=== PATIENT | female | born 1950 | race Caucasian/White ===

== ENCOUNTER 2025-02-26 12:11 | Outpatient (OUT) | payer MEDICARE, SELFPAY ==
--- OUTSIDE RECORDS SUMMARY | 2025-02-18 14:30 | XMS_ITS | Encounter Summary ---
Author Organization [facility] Address [address] [place] [address] Care Team Providers Care Coater Carbon Paper Name Role Phone Nicholas Muñiz MD Primary Care Provider [phone] Nicholas Muñiz MD Unavailable [phone] Reason for Visit * Reason Comments Medicare Annual Wellness Visit Subsequen t Encounter Details Date Type Department Care Team ([facility] Contact Info) Description 02/18/2025 2:30 PM EDT Office Visit [facility] [address] [facility] [address] [place] [address] Olivia Baldwin PA [address] [facility] [address] [place] [address] Medicare annual wellness visit, subsequent (Primary Dx); ACP (advance care planning); Fibromyalgia; Iron deficiency anemia due to chronic blood loss; Other chronic pain; Ankylosing spondylitis, unspecified site of spine (HCC); Abnormal mammogram; Anxiety with depression; Bilateral hearing loss, unspecified hearing loss type; Bilateral lower extremity edema; Chronic sinusitis, unspecified location; Diverticulosis; Estrogen deficiency; Hiatal hernia; Primary insomnia; Internal derangement of right knee; Mild persistent asthma without complication (HCC); Chronic pain of left knee; Primary osteoarthritis of both knees; Pseudophakia of both eyes; Seasonal allergies; Major depressive disorder, single episode, mild ; Chronic obstructive pulmonary disease, unspecified COPD type (HCC); Morbid (severe) obesity due to excess calories ([facility]); Encounter for screening mammogram for malignant neoplasm of breast; Symptomatic varicose veins of both lower extremities; Arthritis of both hands; Esophageal varices without bleeding (HCC); Polyp of vocal cord and larynx Social History Tobacco Use Types Packs/Day Years Used Date Smoking Tobacco: Never Smokeless Tobacco: Never Alcohol Use Standard Drinks/Week Comments Not Currently 0 (1 standard drink = 0.6 oz pur e alcohol) PHQ-2 Answer Date Recorded Patient Health Questionnaire-2 Score 0 02/18/2025 Comments Unknown Sex and Gender Information Value Date Recorded Sex Assigned at Not on file Legal Sex Female 6:40 PM EDT Gender Identity Not on file Sexual Orientation Not on file documented as of this encounter Last Filed Vital Signs Vital Sign Reading Time Taken Comments Blood Pressure 124/78 02/18/2025 2:29 PM EDT Pulse 84 02/18/2025 2:29 PM EDT Temperature - - Respiratory Rate - - Oxygen Saturation 97% 02/18/2025 2:29 PM EDT Inhaled Oxygen Concentration - - Weight 85.3 kg (188 lb) 02/18/2025 2:29 PM EDT Height 154.9 cm (5' 1 ) 02/18/2025 2:29 PM EDT Body Mass Index 35.52 02/18/2025 2:29 PM EDT documented in this encounter Functional Status * Over the past 2 weeks, how often have you been bothered by any of the following problems? Question Answer Date of Assessment Author Little interest or pleasure in doing things Not at all 02/18/2025 2:00 PM EDT Agustina [place] MA Feeling down, depressed, or hopeless Not at all 02/18/2025 2:00 PM EDT Agustina [place] MA Patient Health Questionnaire -2 Score 0 02/18/2025 2:00 PM EDT Agustina [place] MA documented as of this encounter Progress Notes * ABDIEL Mora - 02/18/2025 2:30 PM EDT Images from the original note were not included. Subjective Patient ID: Shena Holder is a 74 y.o. female who presents for Medicare Annual Wellness Visit Subsequent. HPI Medicare Wellness Over the past 2 weeks, how often have you been bothered by any of the following problems? Little interest or pleasure in doing things: Not at all Feeling down, depressed, or hopeless: Not at all Patient Health Questionnaire-2 Score: 0 [place] Fall Risk History of Falling, Immediate or Within 3 Months: No Health Risk Assessment Form Do you need help eating, bathing, using the toilet, dressing, or getting around your home?: No Can you prepare your own meals?: Yes Can you do your own housework without help?: Yes Can you shop for groceries or clothes without help?: Yes Do you exercise for about 20 minutes 3 or more days a week?: Yes How confident are you that you can control and manage most of your health problems?: Very confident Can you mange your money, credit cards and accounts, pay bills and taxes?: Yes Vision Screening: Yes, no gross abnormalities Hearing Screening: Yes, no gross abnormalities Cognitive Screening Self Assessment: No overt cognitive deficiency is apparent by direct observation Three Word Registration: Leader, Season, Table Clock Drawing: Normal Clock - 2 Three Word Recall: All 3 words correct - 3 Total Score (0-5 Points): 5 Pain Assessment Pain Score: 0 - No pain Advance Care Planning Do you have a living will?: Yes Do you have a medical power of criminal defense attorney?: No Current Outpatient Medications on File Prior to Visit Medication Sig Dispense Refill albuterol HFA 90 mcg/act inhaler 2 puffs every 6 (six) hours if needed for wheezing or shortness ofbreath. amitriptyline (Elavil) 50 MG tablet Take 2 tablets (100 mg) by mouth at bedtime 180 tablet 0 ARIPiprazole (Abilify) 2 MG tablet Take 1 tablet (2 mg) by mouth 1 (one) time each day at the same time 100 tablet 3 budesonide-formoterol (Symbicort) 160-4.5 MCG/ACT inhaler Inhale 2 puffs in the morning and 2 puffsbefore bedtime. cyclobenzaprine (Flexeril) 10 MG tablet Take 1 tablet (10 mg) by mouth at bedtime 100 tablet 1 ferrous sulfate 325 (65 Fe) MG tablet Take 1 tablet (325 mg) by mouth 1 (one) time each day at the same time. 100 tablet 1 FLUoxetine (PROzac) 40 MG capsule Take 1 capsule (40 mg) by mouth Daily 100 capsule 3 furosemide (Lasix) 20 MG tablet TAKE 2 TABLET IN THE MORNING AND 1 TABLETS IN THE AFTERNOON 270 tablet 1 gabapentin (Neurontin) 600 MG tablet Take 1 capsule by mouth every morning and 2 capsules at night.90 tablet 2 loratadine (Claritin) 10 MG tablet Take 10 mg by mouth 1 (one) time each day at the same time. meloxicam (Mobic) 7.5 MG tablet TAKE 1 TABLET BY MOUTH EVERY 12 HOURS 200 tablet 1 traMADol (Ultram) 50 MG tablet Take 1 tablet (50 mg) by mouth every 6 (six) hours if needed for moderate pain or severe pain 28 tablet 0 Current Facility-Administered Medications on File Prior to Visit Medication Dose Route Frequency Provider Last Rate Last Admin triamcinolone acetonide (Kenalog-40) injection 40 mg 40 mg Intramuscular Once ABDIEL Mora I have reviewed and reconciled the history and medication list with the patient today. No Known Allergies Social History Tobacco Use Smoking status: Never Smokeless tobacco: Never Substance Use Topics Alcohol use: Not Currently Family History Problem Relation Name Age of Onset Hypertension Mother Heart disease Mother Cancer Mother Cancer Father Past Medical History: Diagnosis Date Allergies Anemia Arthritis Asthma (HCC) COPD (chronic obstructive pulmonary disease) (HCC) Depression Diverticulosis Gastritis Hiatal hernia History of blood transfusion 08/2018 Insomnia Past Surgical History: Procedure Laterality Date BREAST BIOPSY 05/08/2019 BREAST SURGERY 2006 biopsy ESOPHAGOGASTRODUODENOSCOPY 2007 with biopsy ESOPHAGOGASTRODUODENOSCOPY 11/06/2018 with biopsy EYE SURGERY Bilateral cataract lens implants KNEE ARTHROSCOPY W/ DEBRIDEMENT 1989 SINUS SURGERY 06/2003 TONSILLECTOMY 1957 Visit Vitals BP 124/78 Pulse 84 Ht 5' 1 Wt 188 lb SpO2 97% BMI 35.52 kg/m?? Smoking Status Never BSA 1.92 m?? Review of Systems Constitutional: Negative for chills, fatigue and fever. HENT: Negative for congestion, ear pain, rhinorrhea and sore throat. Eyes: Negative for pain, discharge and visual disturbance. Respiratory: Positive for cough. Negative for shortness of breath and wheezing. Cardiovascular: Negative for chest pain, palpitations and leg swelling. Gastrointestinal: Negative for abdominal pain, constipation, diarrhea, nausea and vomiting. Genitourinary: Negative for difficulty urinating, dysuria and frequency. Musculoskeletal: Negative for arthralgias and back pain. Skin: Negative for rash. Neurological: Negative for dizziness and numbness. Psychiatric/Behavioral: Negative for sleep disturbance. The patient is not nervous/anxious. Objective Physical Exam Constitutional: General: She is not in acute distress. Appearance: She is well-developed. She is obese. HENT: Head: Normocephalic and atraumatic. Right Ear: Tympanic membrane and ear canal normal. Left Ear: Tympanic membrane and ear canal normal. Nose: Right Turbinates: Swollen and pale. Left Turbinates: Swollen and pale. Mouth/Throat: Mouth: Mucous membranes are dry. Pharynx: No posterior oropharyngeal erythema. Eyes: General: No scleral icterus. Extraocular Movements: Extraocular movements intact. Conjunctiva/sclera: Conjunctivae normal. Pupils: Pupils are equal, round, and reactive to light. Neck: Vascular: No carotid bruit. Cardiovascular: Rate and Rhythm: Normal rate and regular rhythm. Heart sounds: Normal heart sounds. No murmur heard. Pulmonary: Effort: Pulmonary effort is normal. No respiratory distress. Breath sounds: No wheezing, rhonchi or rales. Comments: Mildly harsh to auscultation Abdominal: General: Bowel sounds are normal. There is no distension. Palpations: Abdomen is soft. Tenderness: There is no abdominal tenderness. There is no guarding. Musculoskeletal: General: Deformity (Arthritic changes noted of bilateral hands) present. No swelling. Normal range of motion. Cervical back: Normal range of motion and neck supple. No tenderness. Comments: Varicose veins bilateral lower legs Skin: General: Skin is warm and dry. Capillary Refill: Capillary refill takes less than 2 seconds. Findings: No rash. Neurological: General: No focal deficit present. Mental Status: She is alert and oriented to person, place, and time. Cranial Nerves: No cranial nerve deficit. Sensory: No sensory deficit. Motor: No weakness. Gait: Gait abnormal (Straight cane for ambulation). Deep Tendon Reflexes: Reflexes normal. Psychiatric: Mood and Affect: Mood normal. Behavior: Behavior normal. Thought Content: Thought content normal. Judgment: Judgment normal. Assessment & Plan 1. Medicare annual wellness visit, subsequent (Primary) Reviewed all relevant preventative screenings with the patient in detail. Medicare Wellness form completed and will be scanned into patient's chart. All needed testing was ordered. Will continue withyearly Medicare Wellness exams. - CBC and differential - Comprehensive metabolic panel - Iron + transferrin + TIBC - Lipid panel 2. ACP (advance care planning) Patient willing to discuss ACP. Pt has Living Will in place. 3. Fibromyalgia This is a chronic medical condition that is stable since last assessment. No changes in treatment are suggested at this time. Continue Flexeril as needed. - cyclobenzaprine (Flexeril) 10 MG tablet; Take 1 tablet (10 mg) by mouth at bedtime Dispense: 100 tablet; Refill: 3 4. Iron deficiency anemia due to chronic blood loss This is a chronic medical condition that is stable since last assessment. No changes in treatment are suggested at this time. Continue Supplement as prescribed. - ferrous sulfate 325 (65 Fe) MG tablet; Take 1 tablet (325 mg) by mouth 1 (one) time each day at the same time Dispense: 100 tablet; Refill: 3 - CBC and differential - Iron + transferrin + TIBC 5. Other chronic pain This is a chronic medical condition that is stable since last assessment. No changes in treatment are suggested at this time. Continue Gabapentin as prescribed. - gabapentin (Neurontin) 600 MG tablet; Take 1 capsule by mouth every morning and 2 capsules at night. Dispense: 90 tablet; Refill: 5 6. Ankylosing spondylitis, unspecified site of spine (HCC) Medication choice and dosage is appropriate for patient's current medical conditions. Patient will continue to be required to be seen in our office at least every three months for monitoring if she wants refill. At each follow up visit I will reassess the patient's need for the medication. Patient is to have this medication prescribed only through this office. Failure to follow the rules and regulations will result in tapering and discontinuation of medications if applicable. Patient verbalizedunderstanding. OARRS Report was reviewed for this patient. - meloxicam (Mobic) 7.5 MG tablet; Take 1 tablet (7.5 mg) by mouth every 12 (twelve) hours Dispense: 200 tablet; Refill: 3 - traMADol (Ultram) 50 MG tablet; Take 1 tablet (50 mg) by mouth every 6 (six) hours if needed for moderate pain or severe pain Dispense: 28 tablet; Refill: 0 7. Abnormal mammogram Mammogram from 2021 was stable in appearance. Provided patient with an order for an updated Mammogram. If results are negative/normal, will plan to continue with routine yearly screenings. 8. Anxiety with depression This is a chronic medical condition that is stable since last assessment. No changes in treatment are suggested at this time. Continue Fluoxetine as prescribed. 9. Bilateral hearing loss, unspecified hearing loss type This is a chronic medical condition that is stable since last assessment. Will continue to monitor. 10. Bilateral lower extremity edema Occasional lower leg pain. Recommend compression stockings daily to support circulation. Contact office with any concerns. - CBC and differential - Comprehensive metabolic panel 11. Chronic sinusitis, unspecified location This is a chronic medical condition that is stable since last assessment. No changes in treatment are suggested at this time. Continue Loratadine as prescribed. 12. Diverticulosis This is a chronic medical condition that is stable since last assessment. Will continue to monitor. 13. Estrogen deficiency Provided pt with order for updated DEXA scan. Will continue to monitor every two years. - DEXA bone density; Future 14. Hiatal hernia This is a chronic medical condition that is stable since last assessment. Will continue to monitor. 15. Primary insomnia This is a chronic medical condition that is stable since last assessment. No changes in treatment are suggested at this time. Continue Amitriptyline as prescribed. 16. Internal derangement of right knee This is a chronic medical condition that is stable since last assessment. No changes in treatment are suggested at this time. Continue Meloxicam as prescribed. 17. Mild persistent asthma without complication (HCC) Encouraged pt to restart the Symbicort as prescribed. Refill provided on it and the Albuterol. Cough should improve once treatment is resumed. Provided pt with Depo-Medrol 60 mg IM today, she tolerated this well. 18. Chronic pain of left knee This is a chronic medical condition that is stable since last assessment. No changes in treatment are suggested at this time. Continue Meloxicam as prescribed. 19. Primary osteoarthritis of both knees This is a chronic medical condition that is stable since last assessment. No changes in treatment are suggested at this time. Continue Meloxicam as prescribed. 20. Pseudophakia of both eyes This is a chronic medical condition that is stable since last assessment. Follow up with Ophthalmology. 21. Seasonal allergies This is a chronic medical condition that is stable since last assessment. No changes in treatment are suggested at this time. Continue Loratadine as prescribed. 22. Major depressive disorder, single episode, mild This is a chronic medical condition that is stable since last assessment. No changes in treatment are suggested at this time. Continue Fluoxetine as prescribed. 23. Chronic obstructive pulmonary disease, unspecified COPD type (HCC) Encouraged pt to restart the Symbicort as prescribed. Refill provided on it and the Albuterol. Cough should improve once treatment is resumed. Provided pt with Depo-Medrol 60 mg IM today, she tolerated this well. - albuterol HFA 90 mcg/act inhaler; Inhale 2 puffs every 6 (six) hours if needed for wheezing or shortness of breath Dispense: 18 g; Refill: 3 - budesonide-formoterol (Symbicort) 160-4.5 MCG/ACT inhaler; Inhale 2 puffs in the morning and 2 puffs before bedtime. Dispense: 1 each; Refill: 3 - methylPREDNISolone acetate (DEPO-Medrol) injection 60 mg 24. Morbid (severe) obesity due to excess calories ([facility]) Encouraged portion control, decrease simple sugars and carbohydrates, gradually increase activity level. Aim for gradual steady weight loss. - Lipid panel 25. Encounter for screening mammogram for malignant neoplasm of breast Provided patient with an order for an updated Mammogram. If results are negative/normal, will plan to continue with routine yearly screenings. - Bilateral screening mammogram with tomosynthesis; Future 26. Symptomatic varicose veins of both lower extremities Occasional lower leg pain. Recommend compression stockings daily to support circulation. Contact office with any concerns. 27. Arthritis of both hands Continue Meloxicam as prescribed, take with food. Can apply Voltaren Gel to affected joints as needed. 28. Esophageal varices without bleeding This is a chronic medical condition that is stable since last assessment. No concerns at this time. 29. Polyp of vocal cord and larynx This is a chronic medical condition that is stable since last assessment. No concerns at this time. Follow up in about 1 year (around 02/18/2026) for Medicare Wellness Visit. Olivia YUEN, PARyanC documented in this encounter Plan of Treatment Scheduled Orders Name Type Priority Associated Diagnoses Orde r Schedule Bilateral screening mammogram with tomosynthesis Imaging Routine Encounter for screening mammogram for malignant neoplasm of breast Expected: 02/18/2025 (Approximate), Expires: 04/21/2026 DEXA bone density Imaging Routine Estrogen deficiency Expected: 02/18/2025 (Approximate), Expires: 02/18/2026 CBC and differential Lab Routine Medicare annual wellness visit, subsequent Iron deficiency anemia due to chronic blood loss Bilateral lower extremity edema Ordered: 02/18/2025 Comprehensive metabolic panel Lab Routine Medicare annual wellness visit, subsequent Bilateral lower extremity edema Ordered: 02/18/2025 Iron + transferrin + TIBC Lab Routine Medicare annual wellness visit, subsequent Iron deficiency anemia due to chronic blood loss Ordered: 02/18/2025 Lipid panel Lab Routine Medicare annual wellness visit, subsequent Morbid (severe) obesity due to excess calories ([facility]-HCC) Ordered: 02/18/2025 documented as of this encounter Visit Diagnoses Diagnosis Medicare annual wellness visit, subsequent- Primary ACP (advance care planning) Other specified counseling Fibromyalgia Unspecified myalgia and myositis Iron deficiency anemia due to chronic blood loss Iron deficiency anemia secondary to blood loss (chronic) Other chronic pain Ankylosing spondylitis, unspecified site of spine (HCC) Abnormal mammogram Abnormal mammogram, unspecified Anxiety with depression Bilateral hearing loss, unspecified hearing loss type Bilateral lower extremity edema Chronic sinusitis, unspecified location Diverticulosis Diverticulosis of colon (without mention of hemorrhage) Estrogen deficiency Other ovarian failure Hiatal hernia Diaphragmatic hernia without mention of obstruction or gangrene Primary insomnia Persistent disorder of initiating or maintaining sleep Internal derangement of right knee Mild persistent asthma without complication (HCC) Chronic pain of left knee Primary osteoarthritis of both knees Pseudophakia of both eyes Lens replaced by other means Seasonal allergies Allergic rhinitis, cause unspecified Major depressive disorder, single episode, mild Major depressive disorder, single episode, mild Chronic obstructive pulmonary disease, unspecified COPD type (HCC) Morbid (severe) obesity due to excess calories (CMS-HCC) Encounter for screening mammogram for malignant neoplasm of breast Symptomatic varicose veins of both lower extremities Arthritis of both hands Esophageal varices without bleeding (HCC) Esophageal varices without mention of bleeding Polyp of vocal cord and larynx Polyp of vocal cord or larynx documented in this encounter Administered Medications Inactive Administered Medications - up to 3 most recent administrations Medication Order MAR Action Action Date Dose Rate Site methylPREDNISolone acetate (DEPO-Medrol) injection 60 mg 60 mg, Intramuscular, Once, On Sun02/18/25 at 1500, For 1 doseIndications:Chronic obstructive pulmonary disease, unspecified COPD type (HCC) Given 02/18/2025 2:54 PM EDT 60 mg Left Ventrogluteal documented in this encounter Additional Health Concerns Assessment Noted Time PHQ-9 Depression Total Score: 6 02/19/20 24 9:00 AM EDT documented as of this encounter Care Teams Coater Carbon Paper Relationship Specialty Start Date End Date Nicholas Muñiz MD [address] [facility] [address] [place] [address] PCP - General Internal Medicine 02/14/23 Nicholas Muñiz MD [address] [facility] [address] [place] [address] PCP - [facility] 08/06/23 03/05/71 documented as of this encounter
--- OUTSIDE RECORDS SUMMARY | 2025-02-26 12:17 | XMS_ITS | Encounter Summary ---
Author Organization [facility] Address [address] [facility] [place] [address] Care Team Providers Care Structural Engineer Name Role Phone Nicholas Muñiz MD Primary Care Provider [phone] Nicholas Muñiz MD Unavailable [phone] Encounter Details Date Type Department Care Team (Late Contact Info) Description 02/20/2025 Abstract [facility] [address] [facility] [address] [place] [id number] Nicholas Muñiz MD [address] [facility] [address] [place], [place] [id number] Social History Tobacco Use Types Packs/Day Years [...] on file documented as of this encounter Plan of Treatment Not on file documented as of this encounter Visit Diagnoses Not on filedocumented in this encounter Additional Health Concerns Assessment Noted Time PHQ-9 Depression Total Score: 6 02/19/20 24 9:00 AM EDT documented as of this encounter Care Teams Structural Engineer Relationship Specialty Start Date End Date Nicholas Muñiz MD [address] [facility] [address] [place] [address] PCP - General Internal Medicine 02/14/23 Nicholas Muñiz MD [address] [facility] [address] [place] [address] [facility] 08/06/23 03/05/71 documented as of this encounter
--- OUTSIDE RECORDS SUMMARY | 2025-02-26 12:17 | XMS_ITS | Encounter Summary ---
Author Organization [facility] Address [address] [place] [address] Care Team Providers Care Probation And Parole Officer Name Role Phone Nicholas Muñiz MD Primary Care Provider [phone] Nicholas Muñiz MD Unavailable [phone] Encounter Details Date Type Department Care Team (Late st Contact Info) Description 02/18/2025 Bamboo flowsheet [facility] [address] [facility] [address] [place] [address] Olivia Baldwin PA [address] [facility] [address] [place] [address] Social History Tobacco Use Types Packs/Day Years [...] on file documented as of this encounter Functional Status * Over the [...] [place] documented as of this encounter Plan of Treatment Not on file documented as of this encounter Visit Diagnoses Not on filedocumented in this encounter Additional Health Concerns Assessment Noted Time PHQ-9 Depression Total Score: 6 02/19/20 24 9:00 AM EDT documented as of this encounter Care Teams Probation And Parole Officer Relationship Specialty Start Date End Date Nicholas Muñiz MD [address] [facility] [address] [place] [address] PCP - General Internal Medicine 02/14/23 Nicholas Muñiz MD [address] [facility] [address] [place] [address] PCP - [facility] 08/06/23 03/05/71 documented as of this encounter
--- OUTSIDE RECORDS SUMMARY | 2025-02-26 12:17 | XMS_ITS | Encounter Summary ---
Author Organization [facility] Address [address] [place] [address] Care Team Providers Care Bus Boy Name Role Phone Nicholas Muñiz MD Primary Care Provider [phone] Nicholas Muñiz MD Unavailable [phone] Encounter Details Date Type Department Care Team (Late st Contact Info) Description 02/20/2024 Abstract [facility] 110 [place] [id number] Nicholas Muñiz MD [address] [facility] 110 [place], [place] [id number] Social History Tobacco Use Types Packs/Day Years Used Date Smoking Tobacco: Never Smokeless Tobacco: Never Alcohol Use Standard Drinks/Week Comments Not Currently 0 (1 standard drink = 0.6 oz pur e alcohol) PHQ-2 Answer Date Recorded Patient Health Questionnaire-2 Score 1 02/19/2024 Comments Unknown Sex and Gender Information Value [...] documented as of this encounter Care Teams Bus Boy Relationship Specialty Start Date End Date Nicholas Muñiz MD [address] [facility] 110 [place] [address] PCP - General Internal Medicine 02/14/23 Nicholas Muñiz MD 112 [facility] 110 [place] [address] [facility] 08/06/23 03/05/71 documented as of this encounter
--- OUTSIDE RECORDS SUMMARY | 2025-02-26 12:17 | XMS_ITS | Clinical Summary ---
Author Organization [facility] Address [address] [place] [address] Care Team Providers Care Running Specialist Name Role Phone Unavailable Primary Care Provider Unavailabl e Social History Tobacco Use Types Packs/Day Years Used Date Smoking Tobacco: Never Assessed Comments Unknown Sex and Gender Information Value Date Recorded Sex Assigned at Not on file Legal Sex Female 12:12 AM EDT Gender Identity Not on file Sexual Orientation Not on file Plan of Treatment Not on file
--- OUTSIDE RECORDS SUMMARY | 2025-02-26 12:17 | XMS_ITS | Encounter Summary ---
Author Organization [facility] Address [address] [place] [address] Care Team Providers Care Rn Clinical Research Name Role Phone Nicholas Muñiz MD Primary Care Provider [phone] Nicholas Muñiz MD Unavailable [phone] Encounter Details Date Type Department Care Team (Latest Contact Info) Description 02/18/2025 Travel Social History Tobacco Use Types Packs/Day Years [...] documented as of this encounter Care Teams Rn Clinical Research Relationship Specialty Start Date End Date Nicholas Muñiz MD [address] [facility] 110 [place] [address] PCP - General Internal Medicine 02/14/23 Nicholas Muñiz MD [address] [facility] [address] [place] [address] PCP - [facility] 08/06/23 03/05/71 documented as of this encounter
--- OUTSIDE RECORDS SUMMARY | 2025-02-26 12:17 | XMS_ITS | Clinical Summary ---
Author Organization [employer] Address [id number] [address] [place] [address] Care Team Providers Care Java Groovy Developer Name Role Phone Nicholas Muñiz MD Primary Care Provider [phone] Allergies No known active allergies Medications sodium,potchasityiu m,mag sulfates (SUPREP BOWEL PREP KIT) 17.5-3.13-1.6 gram recon soln 177 ml,actual weight, 2 times daily, Oral 1 kit 10/28/2018 Active amitriptyline (ELAVIL) 50 mg tablet Take 50 mg by mouth nightly. 3 10/05/2018 Active PROAIR HFA 90 mcg/actuation inhaler INHALE 2 PUFFS NEEDED EVERY 6 HOURS 11 08/19/2018 Active cholecalciferol , vitamin D3, 2,000 units capsule Take by mouth daily. 1 08/01/2018 Active cyclobenzaprine (FLEXERIL) 10 mg tablet Take 10 mg by mouth nightly. 3 10/05/2018 Active diclofenac (VOLTAREN) 75 mg EC tablet Take 75 mg by mouth 2 (two) times a day. 3 10/05/2018 Active diclofenac sodium (VOLTAREN) 1 % gel APPLY 4 GRAMS TO LEFT KNEE 4 TIMES A DAY 1 10/05/2018 Active ferrous sulfate 325 (65 FE) mg tablet TAKE ONE TABLET BY MOUTH THREE TIMES DAILY WITH FOOD 0 08/22/2018 Active FLUoxetine (PROzac) 40 MG capsule Take by mouth daily. 3 10/05/2018 Active folic acid (FOLVITE) 1 mg tablet Take 1,000 mcg by mouth daily. 0 08/22/2018 Active gabapentin (NEURONTIN) 400 mg capsule TAKE 1 CAPSULE BY MOUTH EVERY DAY AT BEDTIME 3 08/12/2018 Active Active Problems No known active problems Social History Tobacco Use Types Packs/Day Years Used Date Smoking Tobacco: Never Smokeless Tobacco: Never Alcohol Use Standard Drinks/Week Comments Yes 0 (1 standard drink = 0.6 oz pur e alcohol) SOMETIMES Childcare Answer Date Recorded Childcare Unknown 01/09/2019 Employment Answer Date Recorded Employment Unknown 01/09/2019 Purpose - Life Answer Date Recorded Purpose and direction in life Unknown Comments Unknown Sex and Gender Information Value Date Recorded Sex Assigned at Not on file Legal Sex Female 11:51 AM EDT Gender Identity Not on file Sexual Orientation Not on file Last Filed Vital Signs Vital Sign Reading Time Taken Comments Blood Pressure 130/82 11/18/2018 3:11 PM EDT Pulse - - Temperature - - Respiratory Rate - - Oxygen Saturation - - Inhaled Oxygen Concentration - - Weight 88.5 kg (195 lb) 11/18/2018 3:11 PM EDT Height 154.9 cm (5' 1 ) 11/18/2018 3:11 PM EDT Body Mass Index 36.84 11/18/2018 3:11 PM EDT Plan of Treatment Health Maintenance Due Date Last Done Comments Depression Screening 1962 Tobacco Screening 1963 Adult BMI Screening 1969 DTaP,Tdap and Td Vaccines (1 - Tdap) 1970 Zoster (Shingles) Vaccine (1 of 2) 2001 Fall Risk Screening 02/25/2016 Influenza Vaccine 04/06/2025 Medical Devices Not on file Insurance MEDICARE [id number] PLAN Care Teams Java Groovy Developer Relationship Specialty Start Date End Date Nicholas Muñiz MD [address] [id number] PCP - General Internal Medicine 10/22/18
--- OUTSIDE RECORDS SUMMARY | 2025-02-26 12:17 | XMS_ITS | Clinical Summary ---
Author Organization [facility] Address [address] [place] [address] Care Team Providers Care Heel Varnisher Name Role Phone Nicholas Muñiz MD Primary Care Provider [phone] Nicholas Muñiz MD Unavailable [phone] Allergies No known active allergies Medications loratadine (Claritin) 10 MG tablet Take 10 mg by mouth 1 (one) time each day at the same time. Active FLUoxetine (PROzac) 40 MG capsuleIndicati ons:Anxiety with depression Take 1 capsule (40 mg) by mouth Daily 100 capsule 3 02/19/20 24 Active furosemide (Lasix) 20 MG tabletIndicatio ns:Edema, unspecified type TAKE 2 TABLET IN THE MORNING AND 1 TABLETS IN THE AFTERNOON 270 tablet 1 07/18/20 24 Active amitriptyline (Elavil) 50 MG tabletIndicatio ns:Fibromyalgia Take 2 tablets (100 mg) by mouth at bedtime 180 tablet 01/31/20 25 025 Active albuterol HFA 90 mcg/act inhalerIndicati ons:Chronic obstructive pulmonary disease, unspecified COPD type (HCC) Inhale 2 puffs every 6 (six) hours if needed for wheezing or shortness of breath 18 g 3 02/19/20 25 Active budesonide-form oterol (Symbicort) 160-4.5 MCG/ACT inhalerIndicati ons:Chronic obstructive pulmonary disease, unspecified COPD type (HCC) Inhale 2 puffs in the morning and 2 puffs before bedtime. 1 each 3 02/19/20 25 Active cyclobenzaprine (Flexeril) 10 MG tabletIndicatio ns:Fibromyalgia Take 1 tablet (10 mg) by mouth at bedtime 100 tablet 3 02/19/20 25 Active ferrous sulfate 325 (65 Fe) MG tabletIndicatio ns:Iron deficiency anemia due to chronic blood loss Take 1 tablet (325 mg) by mouth 1 (one) time each day at the same time 100 tablet 3 02/19/20 25 Active gabapentin (Neurontin) 600 MG tabletIndicatio ns:Other chronic pain Take 1 capsule by mouth every morning and 2 capsules at night. 90 tablet 5 02/19/20 25 Active meloxicam (Mobic) 7.5 MG tabletIndicatio ns:Ankylosing spondylitis, unspecified site of spine (HCC) Take 1 tablet (7.5 mg) by mouth every 12 (twelve) hours 200 tablet 3 02/19/20 25 Active traMADol (Ultram) 50 MG tabletIndicatio ns:Ankylosing spondylitis, unspecified site of spine (HCC) Take 1 tablet (50 mg) by mouth every 6 (six) hours if needed for moderate pain or severe pain 28 tablet 02/19/20 25 Active albuterol HFA 90 mcg/act inhaler 2 puffs every 6 (six) hours if needed for wheezing or shortness of breath. 025 Discontinued(Re order) budesonide-form oterol (Symbicort) 160-4.5 MCG/ACT inhaler Inhale 2 puffs in the morning and 2 puffs before bedtime. 025 Discontinued(Re order) ferrous sulfate 325 (65 Fe) MG tabletIndicatio ns:Iron deficiency anemia due to chronic blood loss Take 1 tablet (325 mg) by mouth 1 (one) time each day at the same time. 100 tablet 1 06/13/20 23 025 Discontinued(Re order) traMADol (Ultram) 50 MG tabletIndicatio ns:Ankylosing spondylitis, unspecified site of spine (HCC) Take 1 tablet (50 mg) by mouth every 6 (six) hours if needed for moderate pain or severe pain 28 tablet 02/19/20 24 025 Discontinued(Re order) gabapentin (Neurontin) 600 MG tabletIndicatio ns:Other chronic pain Take 1 capsule by mouth every morning and 2 capsules at night. 90 tablet 2 02/19/20 24 025 Discontinued(Re order) cyclobenzaprine (Flexeril) 10 MG tabletIndicatio ns:Fibromyalgia Take 1 tablet (10 mg) by mouth at bedtime 100 tablet 1 02/19/20 24 025 Discontinued(Re order) ARIPiprazole (Abilify) 2 MG tabletIndicatio ns:Anxiety with depression Take 1 tablet (2 mg) by mouth 1 (one) time each day at the same time 100 tablet 3 02/19/20 24 025 Discontinued(Th erapy completed) amitriptyline (Elavil) 50 MG tabletIndicatio ns:Fibromyalgia TAKE 2 TABLETS (100 MG) BY MOUTH AT BEDTIME 200 tablet 1 04/08/20 24 025 Discontinued meloxicam (Mobic) 7.5 MG tabletIndicatio ns:Ankylosing spondylitis, unspecified site of spine (HCC) TAKE 1 TABLET BY MOUTH EVERY 12 HOURS 200 tablet 1 10/21/19 25 025 Discontinued(Re order) Hospital, Clinic, or Other Facility Administered Medication Ordered Dose Route Frequency Start Date End Date Status triamcinolone acetonide (Kenalog-40) injection 40 mgIndications:Seasona l allergies 40 mg IM Once 02/19/2024 02/18/2025 Discontinued methylPREDNISolone acetate (DEPO-Medrol) injection 60 mgIndications:Chronic obstructive pulmonary disease, unspecified COPD type (HCC) 60 mg IM Once 02/18/2025 02/18/2025 Ended Active Problems Problem Noted Date Diagnosed Date Arthritis of both hands 02/18/2025 Symptomatic varicose veins of both lower extremi ties 02/18/2025 Major depressive disorder, single episode, mild 02/19/2024 Chronic obstructive pulmonary disease, unspecifi ed 02/19/2024 Morbid (severe) obesity due to excess calories 0 02/19/2024 Seasonal allergies 06/13/2023 Other chronic pain 02/14/2023 Abnormal mammogram 02/13/2023 Ankylosing spondylitis 02/13/2023 Anxiety with depression 02/13/2023 Bilateral hearing loss 02/13/2023 Bilateral lower extremity edema 02/13/2023 Chronic sinusitis 02/13/2023 Diverticulosis 02/13/2023 Estrogen deficiency 02/13/2023 Hiatal hernia 02/13/2023 Insomnia 02/13/2023 Internal derangement of right knee 02/13/2023 Iron deficiency anemia due to chronic blood loss 02/13/2023 Mild persistent asthma without complication 02/03 Fibromyalgia 02/13/2023 Pain in left knee 02/13/2023 Polyp of vocal cord and larynx 02/13/2023 Osteoarthritis of knee 02/13/2023 Pseudophakia of both eyes 02/13/2023 Resolved Problems Problem Noted Date Diagnosed Date Resolved Date Obesity (BMI 30-39.9) 02/13/20232024 Encounters Date Type Department Care Team Description 02/20/2025 Abstract [facility] [address] [facility] [address] [place] [address] Nicholas Muñiz MD 02/18/2025 2:30 PM EDT Office Visit [facility] [address] [facility] [address] [place] [address] Olivia Baldwin PA Medicare annual wellness visit, subsequent (Primary Dx); [...] Morbid (severe) obesity due to excess calories ([facility]-H[facility]); Encounter for screening mammogram for malignant neoplasm of breast; Symptomatic varicose veins of both lower extremities; Arthritis of both hands; Esophageal varices without bleeding (HCC); Polyp of vocal cord and larynx 02/18/2025 Bamboo flowsheet [facility] [address] [facility] [facility] [address] [place] [address] Olivia Baldwin PA 02/18/2025 Travel 01/30/2025 Refill [facility] [address] [facility] [facility] 110 [place] [address] Nicholas Muñiz MD Fibromyalgia from Last 3 Months Immunizations Immunization Administration Dates Next Due Hep B, adult 02/07/2002,10/09/2001,09/11/2001 Influenza, High Dose Seasona l, Preservative Free 05/07/2020,09/08/2019,06/14/2018,05/25 Influenza, High-dose Seasona l, Quadrivalent, Preservative Free 06/08/2022,05/07/2020,04/05/2020,09/08 Influenza, Seasonal, Quadriv alent, Adjuvanted 05/03/2023 Influenza, seasonal, intrade rmal, preservative free 06/14/2018 Pneumococcal Conjugate PCV 13 04/05/2018 Pneumococcal Polysaccharide PPSV23 04/05/2018,,05/25/2016 RSV, recombinant, protein oleary bunit RSVpreF, adjuvant reconstitu, 120mcg/0.5mL, PF (Arexvy) 06/21/2023 Tdap 06/23/2020 Tetanus toxoid, adsorbed 01/14/2007 Family History Medical History Relation Name Comments Cancer Father Cancer Mother Heart disease Mother Hypertension Mother Relation Name Status Comments Father Mother Social History Tobacco Use Types Packs/Day Years Used Date Smoking Tobacco: Never Smokeless Tobacco: Never Tobacco Cessation:Counseling Given: Not Answered Alcohol Use Standard Drinks/Week Comments Not Currently [...] PM EDT Temperature - - Respiratory Rate 02/19/2024 9:58 AM EDT Oxygen Saturation 97% 02/18/2025 2:29 PM EDT Inhaled Oxygen Concentration - - Weight 85.3 kg (188 lb) 02/18/2025 2:29 PM EDT Height 154.9 cm (5' 1 ) 02/18/2025 2:29 PM EDT Body Mass Index 35.52 02/18/2025 2:29 PM EDT Plan of Treatment Health Maintenance Due Date Last Done Comments CT Colonography 1950 FIT-DNA 1950 FIT 1950 FOBT 1950 Sigmoidoscopy 1950 Mammogram 08/12/2022 08/12/2021, 04/07, 04/28/2019, Additional history exists Influenza Vaccine (#1) 2025 , 06/08/2022, 05/07/2020, Additional history exists Medicare Annual Wellness (AWV) 02/18/2026 0 02/18/2025, 02/19/2024, 07/21/2021 Colonoscopy 11/06/2028 11/06/2018 Colorectal Cancer Screening 11/06/2028 Pneumococcal Vaccine: 65+ Years Completed 04/05/2018, 04/05/2018, 08/06/2017, Additional history exists Procedures Procedure Name Priority Date/Time Associated Diagnosis Comments BI MAMMOGRAM SCREENING TOMOSYNTHESIS BILATERAL Routine 08/12/2021 COLONOSCOPY Routine 11/06/2018 12:00 PM EDT from Last 3 Months or Most Recently Relevant to Health Maintenance Results * Bilateral screening mammogram with tomosynthesis (08/12/2021) Anatomical Region Laterality Modality Breast Bilateral Mammography Narrative 08/12/2021 12:00 AM EST PERFORMED AT [facility] LOCATION:[place] [address] Patient: GLORY Noland Exam Date: 08/12/2021 : 1950 Gender:F Ordering : DR NICHOLAS MUÑIZ M.D. Admission #: [id number] Family : Order #: [id number] CLICK HERE TO VIEW EXAM RADIOLOGY REPORT PROCEDURE: MAMMOGRAM SCREENING 3D BILATERAL CAD COMPARISON: MG MAMM SCREEN LORETO W CAD 04/17/2019. MG MAMM LT DIAG FU 04/28/2019. MAMMO POST BIOPSY LEFT 05/08/2019. INDICATIONS: Screening mammography Calculator Name NCI Breast Cancer Risk Assessment Tool 5 Year Breast Cancer Risk 5.10% Lifetime Breast Cancer Risk 14.20% Personal Breast Cancer No Personal Ovarian Cancer No Treatments None Family Cancers Mother with breast cancer at age 78; Mother with thyroid cancer at age 36; Father with colon cancer at age 36; Father with lung cancer at age 64; Grandmother-paternal with colon cancer at age 72. LOCATION: [facility] BREAST COMPOSITION: Heterogeneously dense which may obscure small masses. FINDINGS: DIAGNOSTIC CATEGORY 2--BENIGN FINDING. NO CHANGE FROM COMPARISON. Scattered benign-appearing nodules are present. Scattered benign-appearing calcifications are present. Scattered benign-appearing lymph nodes are present. RIGHT BREAST: No significant suspicious finding. LEFT BREAST: No significant suspicious finding. Stable micro clip markers anterior breast. RECOMMENDATIONS: ROUTINE MAMMOGRAM AND CLINICAL EVALUATION IN 12 MONTHS. PLEASE NOTE: A NORMAL MAMMOGRAM DOES NOT EXCLUDE THE POSSIBILITY OF BREAST CANCER. A CLINICALLY SUSPICIOUS PALPABLE LUMP SHOULD BE BIOPSIED. Dictated by: Andre Cardona MD on 08/12/2021 at 10:26 Approved by: Andre Cardona MD on 08/12/2021 at 10:52 Procedure Note CONVERSION, GENERIC - 02/09/2023 PERFORMED AT [facility] LOCATION:[place] [address] Patient: GLORY Noland Exam Date: 08/12/2021 : 1950 Gender:F Ordering : DR NICHOLAS MUÑIZ M.D. Admission #: [id number] Family : Order #: [id number] CLICK HERE TO VIEW EXAM RADIOLOGY REPORT PROCEDURE: MAMMOGRAM SCREENING 3D BILATERAL CAD COMPARISON: MG MAMM SCREEN LORETO W CAD 04/17/2019. MG MAMM LT DIAG FU 04/28/2019. MAMMO POST BIOPSY LEFT 05/08/2019. INDICATIONS: Screening mammography Calculator Name NCI Breast Cancer Risk Assessment Tool 5 Year Breast Cancer Risk 5.10% Lifetime Breast Cancer Risk 14.20% Personal Breast Cancer No Personal Ovarian Cancer No Treatments None Family Cancers Mother with breast cancer at age 78; Mother withthyroid cancer at age 36; Father with colon cancer at age 36; Father with lungcancer at age 64; Grandmother-paternal with colon cancer at age 72. LOCATION: [facility] BREAST COMPOSITION: Heterogeneously dense which may obscure small masses. FINDINGS: DIAGNOSTIC CATEGORY 2--BENIGN FINDING. NO CHANGE FROM COMPARISON. Scattered benign-appearing nodules are present. Scatteredbenign-appearing calcifications are present. Scattered benign-appearing lymph nodes are present. RIGHT BREAST: No significant suspicious finding. LEFT BREAST: No significant suspicious finding. Stable micro clipmarkers anterior breast. RECOMMENDATIONS: ROUTINE MAMMOGRAM AND CLINICAL EVALUATION IN 12 MONTHS. PLEASE NOTE: A NORMAL MAMMOGRAM DOES NOT EXCLUDE THE POSSIBILITY OFBREAST CANCER. A CLINICALLY SUSPICIOUS PALPABLE LUMP SHOULD BE BIOPSIED. Dictated by: Andre Cardona MD on 08/12/2021 at 10:26 Approved by: Andre Cardona MD on 08/12/2021 at 10:52 Nicholas Muñiz MD IMG BI PROCEDURES Final Result * Colonoscopy (11/06/2018 12:00 PM EDT) Anatomical Region Laterality Modality Endoscopy 11/06/2018 12:0 0 PM EDT Narrative 11/06/2018 12:00 PM EDT PERFORMED AT [facility] LOCATION:[id number] Diverticulosis Procedure Note CONVERSION, GENERIC - 12/20/2022 PERFORMED AT [facility] LOCATION:[id number] Diverticulosis Olivia MEADOWS ENDOSCOPY PROCEDURE ORDERABLES Final Result from Last 3 Months or Most Recently Relevant to Health Maintenance Insurance [employer] [place] [address] Care Teams Heel Varnisher Relationship Specialty Start Date End Date Nicholas Muñiz MD [address] [place] [address] PCP - General Internal Medicine 02/14/23 Nicholas Muñiz MD [address] [place] [address] [id number] [facility] 08/06/23 03/05/71
--- NOTE | 2025-02-26 12:38 | MM_ITS ---
Patient Name: FOREST SANCHEZ MR#: [id number] : 1950 Exam Date: 02/26/2025 Ordering Doctor: DR SHERLY MEADOWS RADIOLOGY REPORT PROCEDURE: MM TOMOSYNTHESIS SCREENING BI COMPARISON: MG MAMM SCREEN 3D LORETO CAD, 08/12/2021. MAMMO POST BIOPSY LEFT, 05/08/2019. MG MAMM SCREEN LORETO W CAD, 04/17/2019. INDICATIONS: Screening for malignant neoplasm Calculator Name NCI Breast Cancer Risk Assessment Tool 5 Year Breast Cancer Risk 5.20% Lifetime Breast Cancer Risk 11.60% Personal Breast Cancer No Personal Ovarian Cancer No Treatments None Family Cancers Mother with breast cancer at age 78; Mother with thyroid cancer at age 36; Father with colon cancer at age 36; Father with lung cancer at age 64; Grandmother-paternal with colon cancer at age 72. LOCATION: [facility] BREAST COMPOSITION: There are scattered areas of fibroglandular density. FINDINGS: DIAGNOSTIC CATEGORY 1--NEGATIVE. RIGHT BREAST: No significant suspicious finding. LEFT BREAST: No significant suspicious finding. RECOMMENDATIONS: ROUTINE MAMMOGRAM AND CLINICAL EVALUATION IN 12 MONTHS. PLEASE NOTE: A NORMAL MAMMOGRAM DOES NOT EXCLUDE THE POSSIBILITY OF BREAST CANCER. A CLINICALLY SUSPICIOUS PALPABLE LUMP SHOULD BE BIOPSIED. Dictated by: Brandon Robins DO on 02/26/2025 at 16:32 Approved by: Brandon Robins DO on 02/26/2025 at 16:33
[2025-02-26 12:58] LABS: Alanine Aminotransferase 17 U/L (14-59); Albumin Globulin Ratio 0.9; Albumin Level 3.4 g/dL (3.4-5.0); Alkaline Phosphatase 82 U/L (46-116); Anion Gap 14.7; Aspartate Amino Transferase 16 U/L (15-37); Blood Urea Nitrogen 16.0 mg/dL (7.0-18.0); Calcium 8.7 mg/dL (8.5-10.1); Carbon Dioxide 28.0 mmol/L (21.0-32.0); Chloride 99 mmol/L (98-107); Cholesterol 127 mg/dL (<=200); Estimated GFR (African America >60 (>=60 mL/min/1.73m^2); Estimated GFR (Non-African Ame >60 (>=60 mL/min/1.73m^2); Globulin 3.7 g/dL; Glucose 90 mg/dL (74-106); HDL Cholesterol 83 mg/dL (40-60); Potassium 3.7 mmol/L (3.5-5.1); Sodium 138 mmol/L (136-145); Total Protein 7.1 g/dL (6.4-8.2); Triglycerides 21 mg/dL (<=150); VLDL CHOLESTEROL 4.2 mg/dL
[2025-02-26 13:06] LABS: Hematocrit 32.7 % (36.0-48.0); Hemoglobin 9.7 g/dL (12.0-16.0); Immature Granulocytes Abs Auto 0.06 10^3/uL (0.00-0.03); Immature Granulocytes Pct Auto 1.0 % (0.0-0.5); Lymphocytes Absolute Auto 0.7 10^3/uL (1.2-3.8); Mean Corpuscular HGB Conc 29.7 g/dL (29.9-35.2); Mean Corpuscular Hemoglobin 23.6 pg (26.7-34.0); Mean Corpuscular Volume 79.6 fL (81.0-99.0); Platelet Count 211 10^3/uL (150-450); Red Blood Count 4.11 10^6/uL (4.20-5.40); White Blood Count 6.2 10^3/uL (4.0-11.0)
[2025-02-26 14:00] LABS: Iron 38.0 ug/dL (50.0-170.0); Percent Iron Saturation 9.2 %; Total Iron Binding Capacity 412.0 ug/dL (250.0-450.0)
[2025-02-27 08:09] LABS: Transferrin 341 mg/dL (192-364)
== END 2025-02-26 12:12 | disposition home or self-care (01) ==
LOC: MAMMO 12:15 → RAD 12:19
PROVIDERS: PCP Internal Medicine; Visit Provider Physician Assistant
DX: Z00.00 Encounter for general adult medical examination without abnormal findings (principal); E28.39 Other primary ovarian failure; Z12.31 Encounter for screening mammogram for malignant neoplasm of breast; E66.01 Morbid (severe) obesity due to excess calories; Z80.3 Family history of malignant neoplasm of breast; Z80.1 Family history of malignant neoplasm of trachea, bronchus and lung; Z80.0 Family history of malignant neoplasm of digestive organs; Z80.8 Family history of malignant neoplasm of other organs or systems; M85.80 Other specified disorders of bone density and structure, unspecified site
CPT/HCPCS: 36415; 77063; 77067; 77080; 80053; 80061; 83540; 83550; 84466; 85025

== ENCOUNTER 2025-04-01 12:06 | Emergency (ER) | payer MEDICARE, SELFPAY ==
[2025-04-01 12:11] VITALS: BP 178/139; PULSE 89; O2SAT 99
--- OUTSIDE RECORDS SUMMARY | 2025-04-01 12:16 | XMS_ITS | Encounter Summary ---
Author Organization [facility] Address [address] [facility] [place] [address] Care Team Providers Care Backup Engineer Name Role Phone Nicholas Muñiz MD Primary Care Provider [phone] Nicholas Muñiz MD Unavailable [phone] Encounter Details Date Type Department Care Team (Late st Contact Info) Description 02/26/2025 Abstract [facility] [place] [facility] [address] [facility] [address] [place] [address] Nicholas Muñiz MD [address] [facility] 110 [place], [place] [id number] Social History Tobacco Use Types Packs/Day Years [...] documented as of this encounter Care Teams Backup Engineer Relationship Specialty Start Date End Date Nicholas Muñiz MD [address] [facility] 110 [place], [place] [id number] PCP - General Internal Medicine 02/14/23 Nicholas Muñiz MD [address] [place] [id number] PCP - [facility] 08/06/23 03/05/71 documented as of this encounter
--- OUTSIDE RECORDS SUMMARY | 2025-04-01 12:16 | XMS_ITS | Encounter Summary ---
Author Organization [facility] Address [address] [place] [address] Care Team Providers Care Potato Inspector Name Role Phone Unavailable Primary Care Provider Unavailabl e Encounter Details Date Type Department Care Team (Late st Contact Info) Description 11/03/2021 Abstract PATIENT ACUITY SCORE Social History Tobacco Use Types Packs/Day Years Used Date Smoking Tobacco: Never Assessed Comments No Sex and Gender Information Value Date Recorded Sex Assigned at Not on file Legal Sex Female 11:57 AM EST Gender Identity Not on file Sexual Orientation Not on file documented as of this encounter Plan of Treatment Not on file documented as of this encounter Visit Diagnoses Not on filedocumented in this encounter
--- OUTSIDE RECORDS SUMMARY | 2025-04-01 12:16 | XMS_ITS | Encounter Summary ---
Author Organization [facility] Address [address] [place] [address] Care Team Providers Care Rn Transitional Name Role Phone Unavailable Primary Care Provider Unavailabl e Encounter Details Date Type Department Care Team (Late st Contact Info) Description 02/02/2022 Abstract PATIENT ACUITY SCORE Social History Tobacco [...]
--- OUTSIDE RECORDS SUMMARY | 2025-04-01 12:16 | XMS_ITS | Encounter Summary ---
Author Organization [facility] Address [address] [facility] [place] [address] Care Team Providers Care Saturator Tender Name Role Phone Nicholas Muñiz MD Primary Care Provider [phone] Nicholas Muñiz MD Unavailable [phone] Encounter Details Date Type Department Care Team (Late st Contact Info) Description 02/27/2025 Abstract [facility] [place] [facility] [address] [facility] [address] [place] [address] Nicholas Muñiz MD [address] [facility] 110 [place], [place] [id number] Social History Tobacco Use Types Packs/Day Years [...] documented as of this encounter Care Teams Saturator Tender Relationship Specialty Start Date End Date Nicholas Muñiz MD [address] [facility] [address] [place], [place] [id number] PCP - General Internal Medicine 02/14/23 Nicholas Muñiz MD [address] [place] [id number] PCP - [facility] 08/06/23 03/05/71 documented as of this encounter
--- OUTSIDE RECORDS SUMMARY | 2025-04-01 12:16 | XMS_ITS | Clinical Summary ---
Author Organization [facility] Address [address] [place] [address] Care Team Providers Care Cook [employer] Name Role Phone Unavailable Primary Care Provider [...]
--- OUTSIDE RECORDS SUMMARY | 2025-04-01 12:16 | XMS_ITS | Clinical Summary ---
Author Organization [facility] Healthcare Address [address] [place] [address] Care Team Providers Care Shale Planer Operator Helper Name Role Phone Nicholas Muñiz MD Primary Care Provider [phone] Nicholas Muñiz MD Unavailable [phone] Allergies No known active allergies Medications loratadine (Claritin) 10 MG tablet Take 10 mg by mouth 1 (one) time each day at the same time. Active furosemide (Lasix) 20 MG tabletIndicatio ns:Edema, unspecified type TAKE 2 TABLET IN THE MORNING AND 1 TABLETS IN THE AFTERNOON 270 tablet 1 07/18/20 24 Active albuterol HFA 90 mcg/act inhalerIndicati ons:Chronic [...] severe pain 28 tablet 02/19/20 25 Active FLUoxetine (PROzac) 40 MG capsuleIndicati ons:Anxiety with depression TAKE 1 CAPSULE BY MOUTH EVERY DAY 100 capsule 3 03/16/20 25 Active amitriptyline (Elavil) 50 MG tabletIndicatio ns:Fibromyalgia TAKE 2 TABLETS BY MOUTH ONCE EVERYDAY AT BEDTIME 180 tablet 03/27/20 25 Active FLUoxetine (PROzac) 40 MG capsuleIndicati ons:Anxiety with depression Take 1 capsule (40 mg) by mouth Daily 100 capsule 3 02/19/20 24 025 Discontinued amitriptyline (Elavil) 50 MG tabletIndicatio ns:Fibromyalgia Take 2 tablets (100 mg) by mouth at bedtime 180 tablet 01/31/20 25 025 Discontinued Active Problems Problem Noted Date Diagnosed Date [...] Encounters Date Type Department Care Team Description 03/27/2025 Refill [facility] [address] [place] [address] Sherly Baldwin, PA Fibromyalgia 03/15/2025 Refill [facility] [address] [place] [address] Sherly Baldwin, PA Anxiety with depression 02/27/2025 Abstract [facility] [address] [place] [address] Nicholas Muñiz MD 02/27/2025 Abstract [facility] [address] [place] [address] Nicholas Muñiz MD 02/26/2025 Telephone [facility] [address] [place] [address] Sherly Baldwin, ABDIEL 02/26/2025 Clinisync Result Encounter NOM[facility] External Department Unsolicited Sherly Baldwin, ABDIEL 02/26/2025 Telephone [facility] [address] [place] [address] Sherly Baldwin PA 02/26/2025 Abstract [facility] [address] [place] [address] Nicholas Muñiz MD 02/26/2025 Abstract [facility] [address] [place] [address] Nicholas Muñiz MD 02/26/2025 Abstract [facility] [address] [facility] 110 [place] [address] Nicholas Muñiz MD 02/26/2025 Clinisync Result Encounter NOMS External Department Unsolicited Sherly Baldwin PA 02/20/2025 Abstract [facility] [address] [facility] [address] [place] [address] Nicholas Muñiz MD 02/18/2025 2:30 PM EDT Office Visit [facility] 112 [facility] 110 [place] [address] Sherly Baldwin PA Medicare annual wellness visit, subsequent [...] Morbid (severe) obesity due to excess calories ([facility]); Encounter for screening mammogram for malignant neoplasm of breast; Symptomatic varicose veins of both lower extremities; Arthritis of both hands; Esophageal varices without bleeding (HCC); Polyp of vocal cord and larynx 02/18/2025 Bamboo flowsheet [facility] [address] [facility] 110 [place] [address] Sherly Baldwin PA 02/18/2025 Travel 01/30/2025 Refill [facility] [address] [facility] 110 [place] [address] Nicholas Muñiz MD Fibromyalgia from Last 3 [...] 1950 FIT 1950 FOBT 1950 Sigmoidoscopy 1950 Influenza Vaccine (#1) 2025 3, 06/08/2022, 05/07/2020, Additional history exists Medicare Annual Wellness (AWV) 02/18/2026 0 02/18/2025, 02/19/2024, 07/21/2021 Mammogram 02/26/2026 02/26/2025, 01/0 02/2022, 04/28/2019, Additional history exists Colonoscopy 11/06/2028 11/06/2018 Colorectal Cancer Screening 11/06/2028 Pneumococcal Vaccine: 65+ Years Completed 04/05/2018, 04/05/2018, 08/06/2017, Additional history exists Procedures Procedure Name Priority Date/Time Associated Diagnosis Comments MM TOMOSYNTHESIS SCREENING BI 02/26/2025 4:33 PM EDT TRANSFERRIN Routine 02/26/2025 12:31 PM EDT METRO IRON AND TIBC Routine 02/26/2025 1 2:31 PM EDT ALL CBC WITH AUTO DIFF Routine 12:31 PM EDT ALL LIPID PROFILE (FASTING) Routine 02/26/2025 12:31 PM EDT [facility] CMP (CMP) (FOR REMOTE [facility] USE) Routine 02/26/2025 12:31 PM EDT COLONOSCOPY Routine 11/06/2018 12:00 PM EDT from Last 3 Months or Most Recently Relevant to Health Maintenance Results * MM TOMOSYNTHESIS SCREENING BI (02/26/2025 4:33 PM EDT) Anatomical Region Laterality Modality Other 02/26/2025 4:33 PM EDT Narrative 02/26/2025 4:34 PM EDT [facility] [place] [id number] Mammography Report Signed Patient: FOREST HOLDER MR#: [id number] : 1950 Acct:[id number] Age/Sex: 75 / F ADM Date: 02/26/25 Loc: RAD Attending Dr: SHERLY BALDWIN Ordering Physician: SHERLY BALDWIN Results: Date of Service: 02/26/25 Follow Up: Procedure(s): MM tomosynthesis screening BI Accession Number(s): [id number] cc: NICHOLAS MUÑIZ ; SHERLY BALDWIN Patient Name: FOREST HOLDER MR#: [id number] : 1950 Exam Date: 02/26/2025 Ordering Doctor: DR SHERLY BALDWIN PA RADIOLOGY REPORT PROCEDURE: MM TOMOSYNTHESIS SCREENING BI COMPARISON: MG MAMM SCREEN 3D LORETO CAD, 08/12/2021. MAMMO POST BIOPSY LEFT, 05/08/2019. MG MAMM SCREEN LORETO W CAD, 04/17/2019. INDICATIONS: Screening for malignant neoplasm Calculator Name NCI Breast Cancer Risk Assessment Tool 5 Year Breast Cancer Risk 5.20% Lifetime Breast Cancer Risk 11.60% Personal Breast Cancer No Personal Ovarian Cancer No Treatments None Family Cancers Mother with breast cancer at age 78; Mother with thyroid cancer at age 36; Father with colon cancer at age 36; Father with lung cancer at age 64; Grandmother-paternal with colon cancer at age 72. LOCATION: [facility] BREAST COMPOSITION: There are scattered areas of fibroglandular density. FINDINGS: DIAGNOSTIC CATEGORY 1--NEGATIVE. RIGHT BREAST: No significant suspicious finding. LEFT BREAST: No significant suspicious finding. RECOMMENDATIONS: ROUTINE MAMMOGRAM AND CLINICAL EVALUATION IN 12 MONTHS. PLEASE NOTE: A NORMAL MAMMOGRAM DOES NOT EXCLUDE THE POSSIBILITY OF BREAST CANCER. A CLINICALLY SUSPICIOUS PALPABLE LUMP SHOULD BE BIOPSIED. Dictated by: Brandon Robins DO on 02/26/2025 at 16:32 Approved by: Brandon Robins DO on 02/26/2025 at 16:33 Dictated By: Brandon Robins M.D. Signed By: 02/26/25 1634 DD/ 1633 TD/TT: Certified Midwife: Procedure Note Radiology, Radiologist, MD - 02/26/2025 [place] [address] Mammography Report Signed Patient: FOREST HOLDER EMR#: [id number] : 1950cct:[id number] Age/Sex: 75 / FADM Date: 02/26/25 Loc: RAD Attending Dr: SHERLY BALDWIN Ordering Physician: SHERLY BALDWIN MResults: Date of Service: 02/26/25Follow Up: Procedure(s): MM tomosynthesis screening BI Accession Number(s): [id number] cc: NICHOLAS MUÑIZ ; SHERLY BALDWIN Patient Name: FOREST HOLDER MR#: [id number] : 1950 Exam Date: 02/26/2025 Ordering Doctor: DR SHERLY BALDWIN PA RADIOLOGY REPORT PROCEDURE: MM TOMOSYNTHESIS SCREENING BI COMPARISON: MG MAMM SCREEN 3D LORETO CAD, 08/12/2021. MAMMO POST BIOPSYLEFT, 05/08/2019. MG MAMM SCREEN LORETO W CAD, 04/17/2019. INDICATIONS: Screening for malignant neoplasm Calculator Name NCI Breast Cancer Risk Assessment Tool 5 Year Breast Cancer Risk 5.20% Lifetime Breast Cancer Risk 11.60% Personal Breast Cancer No Personal Ovarian Cancer No Treatments None Family Cancers Mother with breast cancer at age 78; Mother withthyroid cancer at age 36; Father with colon cancer at age 36; Father with lungcancer at age 64; Grandmother-paternal with colon cancer at age 72. LOCATION: [facility] BREAST COMPOSITION: There are scattered areas of fibroglandulardensity. FINDINGS: DIAGNOSTIC CATEGORY 1--NEGATIVE. RIGHT BREAST: No significant suspicious finding. LEFT BREAST: No significant suspicious finding. RECOMMENDATIONS: ROUTINE MAMMOGRAM AND CLINICAL EVALUATION IN 12 MONTHS. PLEASE NOTE: A NORMAL MAMMOGRAM DOES NOT EXCLUDE THE POSSIBILITY OFBREAST CANCER. A CLINICALLY SUSPICIOUS PALPABLE LUMP SHOULD BE BIOPSIED. Dictated by: Brandon Robins DO on 02/26/2025 at 16:32 Approved by: Brandon Robins DO on 02/26/2025 at 16:33 Dictated By: Brandon Robins M.D. Signed By:02/26/25 1634 DD/ 32 TD/TT: Certified Midwife: Sherly MEADOWS CLINISYNC IMAGING Final Result * TRANSFERRIN (02/26/2025 12:31 PM EDT) Pathologist [facility] TRANSFERRIN 341 192 - 364 mg/dL TBH Comment: Performed at: [facility] [address] [id number] Life Skills Teacher: Lenny Banks PhD, Phone: [phone] 02/26/2025 12:3 1 PM EDT 02/26/2025 12:32 PM EDT Narrative CLINISYNC - 02/27/2025 8:09 AM EDT Sherly MEADOWS LAB BLOOD ORDERABLES Final Res ult Performing Organization Address City/[facility]/ZIP Co de Phone Number CLINISYNC TBH * (ABNORMAL) METRO IRON AND TIBC (02/26/2025 12:31 PM EDT) Pathologist [facility] TBH IRON 38.0(L) 50.0 - 170.0 ug/dL TBH TBH TOTAL IRON BINDING CAPACITY 412.0 250.0 - 450.0 ug/dL TBH TBH PERCENT IRON SATURATION 9.2 % TBH 02/26/2025 12:3 1 PM EDT 02/26/2025 12:32 PM EDT Narrative CLINISYNC - 02/26/2025 2:02 PM EDT Sherly MEADOWS CLINISYNC Final Result CLINISYNC [facility] * [facility] CMP (CMP) (FOR REMOTE [facility] USE) (02/26/2025 12:31 PM EDT) SODIUM 138 136 - 145 mmol/L TBH POTASSIUM 3.7 3.5 - 5.1 mmol/L TBH CHLORIDE 99 98 - 107 mmol/L TBH CARBON DIOXIDE 28.0 21.0 - 32.0 mmol/L TBH ANION GAP 14.7 TBH GLUCOSE 90 74 - 106 mg/dL TBH BLOOD UREA NITROGEN 16.0 7.0 - 18.0 mg/dL TBH CREATININE 0.65 0.55 - 1.02 mg/dL TBH TBH EGFR-AF [place] >60 >=60 mL/min/1. 73m 2 TBH TBH EGFR-NON AF [place] >60 >=60 mL/min/1. 73m 2 TBH BUN CREATININE RATIO 24.6 TBH CALCIUM 8.7 8.5 - 10.1 mg/dL TBH BILIRUBIN TOTAL 0.5 0.2 - 1.0 mg/dL TBH ASPARTATE AMINO TRANSFERASE 16 15 - 37 U/L TBH ALANINE AMINOTRANSFERASE 17 14 - 59 U/L TBH ALKALINE PHOSPHATASE 82 46 - 116 U/L TBH TOTAL PROTEIN 7.1 6.4 - 8.2 g/dL TBH ALBUMIN LEVEL 3.4 3.4 - 5.0 g/dL TBH GLOBULIN 3.7 g/dL TBH ALBUMIN GLOBULIN RATIO 0.9 TBH 02/26/2025 12:3 1 PM EDT 02/26/2025 12:32 PM EDT Narrative CLINISYNC - 02/26/2025 12:58 PM EDT us Sherly MEADOWS CLINISYNC Final Result [facility] * (ABNORMAL) ALL LIPID PROFILE (FASTING) (02/26/2025 12:31 PM EDT) TRIGLYCERIDES 21 <=150 mg/dL TBH CHOLESTEROL 127 <=200 mg/dL TBH HDL CHOLESTEROL 83(H) 40 - 60 mg/dL TB Comment: > or =60 mg/dl - LOW CARDIOVASCULAR RISK <40 mg/dl - HIGH CARDIOVASCULAR RISK LDL CHOLESTEROL CALCULATED 40.0 mg/dL TB Comment: <100 mg/dl OPTIMAL 100-129 mg/dl NEAR OR ABOVE OPTIMAL 130-159 mg/dl BORDERLINE HIGH 160-189 mg/dl HIGH >190 mg/dl VERY HIGH VLDL CHOLESTEROL 4.2 mg/dL TBH CHOL HDL RATIO 1.5 TB Comment: 3.3 - 4.4 LOW RISK 4.4 - 7.1 AVERAGE RISK 7.1 - 11.0 MODERATE RISK >11.0 HIGH RISK 02/26/2025 12:3 1 PM EDT 02/26/2025 12:32 PM EDT Narrative CLINISYNC - 02/26/2025 12:58 PM EDT us Sherly MEADOWS CLINISYNC Final Result CLINISYNC TB * (ABNORMAL) ALL CBC WITH AUTO DIFF (02/26/2025 12:31 PM EDT) Pathologist [facility] TB WBC 6.2 4.0 - 11.0 10 3/uL TBH TBH RBC 4.11(L) 4.20 - 5.40 10 6/uL TBH TBH HGB 9.7(L) 12.0 - 16.0 g/dL TBH TBH HCT 32.7(L) 36.0 - 48.0 % TBH TBH MCV 79.6(L) 81.0 - 99.0 fL TBH TBH MCH 23.6(L) 26.7 - 34.0 pg TBH TBH MCHC 29.7(L) 29.9 - 35.2 g/dL TBH TBH RDW 15.3(H) 11.0 - 15.0 % TBH TBH PLT 211 150 - 450 10 3/uL TBH TBH MPV 10.2 9.5 - 13.5 fL TBH NEUTROPHILS PERCENT AUTO 71.8 43.0 - 75.0 % TBH LYMPHOCYTES PERCENT AUTO 11.5(L) 20.5 - 60.0 % TBH MONOCYTES PERCENT AUTO 9.7 1.7 - 12.0 % TBH TBH EO % 5.4 0.9 - 7.0 % TBH BASOPHILS PERCENT AUTO 0.6 0.2 - 2.0 % TBH IMMATURE GRANULOCYTES PCT AUTO 1.0(H) 0.0 - 0.5 % TBH NEUTROPHILS ABSOLUTE AUTO 4.4 1.4 - 6.5 10 3/uL TBH LYMPHOCYTES ABSOLUTE AUTO 0.7(L) 1.2 - 3.8 10 3/uL TBH MONOCYTES ABSOLUTE AUTO 0.6 0.3 - 0.8 10 3/uL TBH TBH EO # 0.3 0.0 - 0.7 10 3/uL TBH BASOPHILS ABSOLUTE AUTO 0.0 0.0 - 0.1 10 3/uL TBH IMMATURE GRANULOCYTES ABS AUTO 0.06(H) 0.00 - 0.03 10 3/uL TBH 02/26/2025 12:3 1 PM EDT 02/26/2025 12:32 PM EDT Narrative CLINISYNC - 02/26/2025 1:13 PM EDT Sherly MEADOWS CLINISYNC Final Result CLINISYNC TBH * Colonoscopy (11/06/2018 12:00 PM EDT) Anatomical Region Laterality Modality Endoscopy 11/06/2018 12:0 0 PM EDT Narrative 11/06/2018 12:00 PM EDT PERFORMED AT [facility] LOCATION:[id number] Diverticulosis Procedure Note CONVERSION, GENERIC - 12/20/2022 PERFORMED AT [facility] LOCATION:[id number] Diverticulosis Sherly MEADOWS ENDOSCOPY PROCEDURE ORDERABLES Final Result from Last 3 Months or Most Recently Relevant to Health Maintenance Insurance [employer] MEDICARE Care Teams Shale Planer Operator Helper Relationship Specialty Start Date End Date Nicholas Muñiz MD [address] [facility] 110 [place] [address] PCP - General Internal Medicine 02/14/23 Nicholas Muñiz MD [address] [address] [facility] 08/06/23 03/05/71
--- OUTSIDE RECORDS SUMMARY | 2025-04-01 12:16 | XMS_ITS | Encounter Summary ---
Author Organization [facility] Address [address] [facility] [place] [address] Care Team Providers Care Wet Pour Supervisor Name Role Phone Nicholas Muñiz MD Primary Care Provider [phone] Nicholas Muñiz MD Unavailable [phone] Encounter Details Date Type Department Care Team (Late st Contact Info) Description 02/26/2025 Abstract [facility] [address] [facility] 110 [place] [address] Nicholas Muñiz MD [address] [facility] 110 [place], [place] [id number] Social History Tobacco Use Types Packs/Day Years [...] documented as of this encounter Care Teams Wet Pour Supervisor Relationship Specialty Start Date End Date Nicholas Muñiz MD [address] [facility] 110 [place], [place] [address] PCP - General Internal Medicine 02/14/23 Nicholas Muñiz MD [address] [place] [id number] PCP - [facility] 08/06/23 03/05/71 documented as of this encounter
--- OUTSIDE RECORDS SUMMARY | 2025-04-01 12:16 | XMS_ITS | Clinical Summary ---
Author Organization [employer] Address [id number] [address] [place] [address] Care Team Providers Care Drill Setup Operator Name Role Phone Nicholas Muñiz MD Primary Care Provider Allergies No known active allergies Medications sodium,potchasityiu [...] Medical Devices Not on file Insurance MEDICARE [id number] PLAN Care Teams Drill Setup Operator Relationship Specialty Start Date End Date Nicholas Muñiz MD [address] [address] PCP - General Internal Medicine 10/22/18
--- OUTSIDE RECORDS SUMMARY | 2025-04-01 12:16 | XMS_ITS | Encounter Summary ---
Author Organization [facility] Address [address] [facility] [place] [address] Care Team Providers Care Billet Driller Name Role Phone Nicholas Muñiz MD Primary Care Provider [phone] Nicholas Muñiz MD Unavailable [phone] Encounter Details Date Type Department Care Team (Late st Contact Info) Description 02/20/2024 Abstract [facility] [address] [facility] 110 [place] [address] Nicholas Muñiz MD [address] [facility] 110 [place], [place] [phone] Social History Tobacco Use Types Packs/Day Years [...] documented as of this encounter Care Teams Billet Driller Relationship Specialty Start Date End Date Nicholas Muñiz MD [address] [facility] 110 [place], [place] [phone] PCP - General Internal Medicine 02/14/23 Nicholas Muñiz MD [address] [place] [id number] PCP - [facility] 08/06/23 03/05/71 documented as of this encounter
--- OUTSIDE RECORDS SUMMARY | 2025-04-01 12:16 | XMS_ITS | Encounter Summary ---
Author Organization [facility] Address [address] [facility] [place] [address] Care Team Providers Care Surveillance Technician Name Role Phone Nicholas Muñiz MD Primary Care Provider [phone] Nicholas Muñiz MD Unavailable [phone] Encounter Details Date Type Department Care Team (Late st Contact Info) Description 02/20/2025 Abstract [facility] [address] [facility] 110 [place] [address] Nicholas Muñiz MD [address] [facility] 110 [place], [place] [id number] Social History Tobacco Use Types Packs/Day Years [...] documented as of this encounter Care Teams Surveillance Technician Relationship Specialty Start Date End Date Nicholas Muñiz MD [address] [facility] 110 [place], [place] [phone] PCP - General Internal Medicine 02/14/23 Nicholas Muñiz MD [address] [place] [id number] PCP - [facility] 08/06/23 03/05/71 documented as of this encounter
--- OUTSIDE RECORDS SUMMARY | 2025-04-01 12:16 | XMS_ITS | Encounter Summary ---
Author Organization [facility] Address [address] [place] [address] Care Team Providers Care Log Rider Name Role Phone Nicholas Muñiz MD Primary Care Provider [phone] Nicholas Muñiz MD Unavailable [phone] Reason for Visit * Reason Comments Med Change Request Encounter Details Date Type Department Care Team (Late st Contact Info) Description 03/27/2025 Refill [facility] [address] [facility] 110 [place] [address] Olivia Baldwin PA [address] [place] [address] [place] [address] Fibromyalgia Social History Tobacco Use Types Packs/Day Years [...] as of this encounter Visit Diagnoses Diagnosis Fibromyalgia Unspecified myalgia and myositis documented in this encounter Additional Health Concerns Assessment Noted Time PHQ-9 Depression Total Score: 6 02/19/20 24 9:00 AM EDT documented as of this encounter Care Teams Log Rider Relationship Specialty Start Date End Date Nicholas Muñiz MD [address] [place] [address] [place], [place] [phone] PCP - General Internal Medicine 02/14/23 Nicholas Muñiz MD [address] [address] PCP - [facility] 08/06/23 03/05/71 documented as of this encounter
--- OUTSIDE RECORDS SUMMARY | 2025-04-01 12:16 | XMS_ITS | Encounter Summary ---
Author Organization [facility] Address [address] [facility] [place] [address] Care Team Providers Care Machine Room Engineer Name Role Phone Nicholas Muñiz MD Primary Care Provider [phone] Nicholas Muñiz MD Unavailable [phone] Encounter Details Date Type Department Care Team (Late st Contact Info) Description 02/27/2025 Abstract [facility] [address] [facility] 110 [place] [address] Nicholas Muñiz MD [address] [facility] 110 [place], [place] [address] Social History Tobacco Use Types Packs/Day Years [...] documented as of this encounter Care Teams Machine Room Engineer Relationship Specialty Start Date End Date Nicholas Muñiz MD [address] [facility] 110 [place], [place] [address] PCP - General Internal Medicine 02/14/23 Nicholas Muñiz MD [address] [place] [phone] PCP - [facility] 08/06/23 03/05/71 documented as of this encounter
--- OUTSIDE RECORDS SUMMARY | 2025-04-01 12:16 | XMS_ITS | Encounter Summary ---
Author Organization [facility] Address [address] [place] [address] Care Team Providers Care Director Oracle Database Name Role Phone Unavailable Primary Care Provider Unavailabl e Encounter Details Date Type Department Care Team (Late st Contact Info) Description 08/05/2021 Abstract PATIENT ACUITY SCORE Social History Tobacco [...]
--- OUTSIDE RECORDS SUMMARY | 2025-04-01 12:16 | XMS_ITS | Clinical Summary ---
Author Organization [facility] Address [address] [place] [address] Care Team Providers Care Guest Room Attendant Name Role Phone Unavailable Primary Care Provider Unavailabl e Source Comments The following information is NOT included in Care Everywhere downloads:Psychiatric notes, ECG results, Cardiac Rehab notes, Pulmonary Function notes, data from SmartForms (includes but not limited toPregnancy data,audiograms, eye exams, pre-surgical evaluation notes, well-child exam data).[facility] Immunizations Immunization Administration Dates Next Due Hep B (adult, 3-dose) or (ad ol 11-15, 2-dose) (CVX=43) 02/07/2002,10/09/2001,09/11/2001 Influenza, injectable, high dose seasonal, trivalent, preservative free (SUE=494) 05/07/2020,09/08/2019,06/14/2018,05/25 Influenza, injectable, high- dose seasonal, quadrivalent, preservative free (VHE=979) 04/05/2020 Influenza, intradermal, triv alent, preservative free (IIV3) (HNS=658) 06/05/2018 Pneumococcal conjugate 13 va lent (PCV13) (SYW=057) 04/05/2018 Pneumococcal polysaccharide 23 Valent (PPSV23) (CVX=33) 08/06/2017,05/25/2016 Tdap (MEW=367) 06/23/2020 Social History Tobacco Use Types Packs/Day Years Used Date Smoking Tobacco: Never Assessed Comments No Sex and Gender Information Value Date Recorded Sex Assigned at Not on file Legal Sex Female 11:57 AM EST Gender Identity Not on file Sexual Orientation Not on file Last Filed Vital Signs Vital Sign Reading Time Taken Comments Blood Pressure 132/67 03/10/2004 2:08 PM EDT Pulse 81 03/10/2004 2:08 PM EDT Temperature 36.4 C (97.6 F) 03/10/2004 2:08 PM EDT Respiratory Rate - - Oxygen Saturation - - Inhaled Oxygen Concentration - - Weight 69.2 kg (152 lb 8.9 oz) 03/10/2004 2:08 P M EDT Height - - Body Mass Index - - Plan of Treatment Health Maintenance Due Date Last Done Comments Colonoscopy 1950 Hepatitis C Antibody 1969 Hepatitis A (HAV) Vaccine (optional start 19+ years) 1970 Mammography 1991 CRC Screening 02/25/1996 Cholesterol 02/25/1996 Cologuard (Stool DNA) 02/25/1996 FIT 02/25/1996 Shingles (RZV) Vaccine (1 of 2) 2001 Bone Densitometry 02/25/2016 Annual Wellness Visit (G0438) 02/03/2022 COVID-19 Vaccine (2023-2 5 season) 2024 10/29/2020, 09/29/2020 Influenza Vaccine (#1) 2025 , 04/05/2020, 09/08/2019, Additional history exists RSV vaccine (adult) (1 - 1-d ose 75+ series) 2026 Tetanus (Td or Tdap) Booster 06/23/2030 06/23/2020 Hepatitis B (HBV) Vaccine Completed 2001, 10/09/2001, 09/11/2001 Pneumococcal Vaccine(s) (50+ yrs) Completed 04/05/2018, 08/06/2017, 05/25/2016 Tdap Booster Completed 06/23/2020 Pap Smear Discontinued Insurance MEDICARE
--- OUTSIDE RECORDS SUMMARY | 2025-04-01 12:16 | XMS_ITS | Encounter Summary ---
Author Organization [facility] Address [address] [facility] [place] [address] Care Team Providers Care Silk Screen Processor Name Role Phone Nicholas Muñiz MD Primary Care Provider [phone] Nicholas Muñiz MD Unavailable [phone] Encounter Details Date Type Department Care Team (Late st Contact Info) Description 02/26/2025 Abstract [facility] [address] [facility] 110 [place] [address] Nicholas Muñiz MD [address] [facility] 110 [place], [place] [phone] Social History Tobacco Use Types Packs/Day Years [...] documented as of this encounter Care Teams Silk Screen Processor Relationship Specialty Start Date End Date Nicholas Muñiz MD [address] [facility] 110 [place], [place] [phone] PCP - General Internal Medicine 02/14/23 Nicholas Muñiz MD [address] [place] [id number] PCP - [facility] 08/06/23 03/05/71 documented as of this encounter
--- NOTE | 2025-04-01 12:19 | CT_ITS ---
The [address] [address] Patient Name: FOREST SANCHEZ MRN: [id number] date: 1950 Sex: F Assigned Patient Location: ER Current Patient Location: ER Accession/Order Number: [id number] Exam Date: 04/01/2025 12:38 Report Date: 04/01/2025 12:59 At the request of: ROD SEXTON DO Procedure: CT head/brain wo con CT head/brain wo con 04/01/2025 12:49 PM SIGNS AND SYMPTOMS: head injury, word finding difficulty x 3 weeks TECHNIQUE:Multi-detector CT axial slices of the brain were obtained without IV contrast. CT was performed with one or more of the following dose reduction techniques: Automated exposure control, adjustment of the mA and/or kV according to patient size, or use of iterative reconstruction technique. COMPARISON: None. FINDINGS: There is no shift of the midline structures, acute intracranial bleeding, mass effects, or evidence of acute ischemia. There is age-related cortical atrophy. The ventricular system is normal in size. The brainstem and the cerebellum are unremarkable. There is evidence of previous ethmoidectomy. The visualized intraorbital contents and the infratemporal soft tissues show no acute abnormality. The osseous structures in the skull base and the calvarium show no abnormality. CT/CT head/brain wo con IMPRESSION: No acute intracranial pathology. There is age-related cortical atrophy. Impression dictated by: Dontae Blair M.D. 04/01/2025 12:59 PM Dictation Location: [facility] Electronically authenticated by: [id number] Y Date: 04/01/2025 12:59
[2025-04-01 12:20] VITALS: TEMP 36.9
[2025-04-01 12:28] VITALS: BP 108/52
--- NOTE | 2025-04-01 12:31 | PC.NURSE ---
pt admits to multiple falls, lastbeing on sunday. denies LOC or passing out. also admits to having some asphasia for the past 3 weeks. no blood thinners
--- NOTE | 2025-04-01 12:34 | ED.GENADUL1 ---
HPI HPI - General Adult General Chief complaint: Fall Stated complaint: FALL HEAD INJURY Time Seen by Provider: 04/01/25 12:08 Source: patient Mode of arrival: walk-in History of Present Illness HPI narrative: Patient is a 75-year-old female presenting to the emergency department requesting head imaging. Patient states she has had recurrent falls over the few weeks. Her last fall was 4 days ago. She states she tripped and fell each time, did not become lightheaded or dizzy prior to the falls. She never experienced any loss of consciousness. She denies any headaches, visual disturbances, weakness, numbness/tingling, or any other neurologic complaints. She states that she has also been experiencing 3 weeks of word finding difficulty since the falls. She states that her PA wrote her prescription for an outpatient MRI, but was supposed to come to the ED for a doctor's evaluation . She denies any other systemic symptoms such as chest pain, shortness of breath, abdominal pain, nausea, or vomiting. She has no neck or back pain. She is not on blood thinners. Related Data Home Medications ?Medication ?Instructions ?Recorded ?Confirmed aripiprazole 2 mg tablet 2 mg PO DAILY 04/01/25 04/01/25 ferrous sulfate 325 mg (65 mg 325 mg PO DAILY 04/01/25 04/01/25 iron) tablet fluoxetine 40 mg capsule 40 mg PO DAILY 04/01/25 04/01/25 furosemide 20 mg tablet 40 mg PO DAILY 04/01/25 04/01/25 gabapentin 600 mg tablet 600 mg PO DAILY 04/01/25 04/01/25 meloxicam 7.5 mg tablet 7.5 mg PO DAILY 04/01/25 04/01/25 Allergies Allergy/AdvReac Type Severity Reaction Status Date / Time No Known Drug Allergies Allergy Verified 04/01/25 12:20 Review of Systems ROS Status of ROS 10 or more systems reviewed and unremarkable except as noted in history and below Exam Narrative Exam Narrative: CONSTITUTIONAL: Well-appearing, answering questions and following commands appropriately, she intermittently stutters and seems to have word finding difficulty HEAD: There is a healing area of ecchymosis over the center of her forehead, otherwise atraumatic and normocephalic. SKIN: Was warm and dry. EYES: No scleral icterus. No conjunctival pallor. No periorbital ecchymosis or Medina sign. EARS, NOSE, THROAT: Moist oral mucosa. RESPIRATORY: Clear to auscultation bilaterally, no wheezes, crackles, or stridor, no use of accessory muscles CARDIOVASCULAR: Normal rate and regular rhythm. There is no S3, S4, murmur, rub. GASTROINTESTINAL: Abdomen soft, nondistended, and nontender MUSCULOSKELETAL: No T/L/C-spine tenderness. Ambulates with a steady gait. NEUROLOGIC: Patient is alert and oriented to person place and time with normal speech. Memory is normal and thought process is intact. Sensation: sensation to light touch is intact bilaterally in upper and lower extremities. Motor: Good muscle tone. Strength is 5/5 bilaterally in the upper and lower extremities. Cerebellar: Finger to nose intact. Patient has a normal gait without ataxia. Cranial Nerves: Pupils are round, reactive to light and accommodation. Extraocular movements are intact without ptosis. No nystagmus. Facial sensation intact bilaterally to light touch in the V1, V2, V3 distribution. Facial muscle strength is normal and equal bilaterally. Hearing is normal bilaterally. Palate and uvula elevate symmetrically. Shoulder shrug strong and equal bilaterally. Tongue protrudes midline and moves symmetrically. Constitutional Vital Signs, click to edit/add: Last Vital Signs Temp 98.4 F 04/01/25 12:20 Pulse 89 04/01/25 12:11 Resp 04/01/25 12:11 BP 108/52 04/01/25 12:28 Pulse Ox 99 04/01/25 12:11 O2 Del Method Room Air 04/01/25 12:11 Course Vital Signs Vital signs: Vital Signs Pulse Rate 89 04/01/25 12:11 Respiratory Rate 04/01/25 12:11 Blood Pressure 178/139 H 04/01/25 12:11 Pulse Oximetry 99 04/01/25 12:11 Oxygen Delivery Method Room Air 04/01/25 12:11 Temperature 98.4 F 04/01/25 12:20 Pulse Rate 89 04/01/25 12:11 Respiratory Rate 04/01/25 12:11 Blood Pressure 108/52 04/01/25 12:28 Pulse Oximetry 99 04/01/25 12:11 Oxygen Delivery Method Room Air 04/01/25 12:11 Medical Decision Making MDM Narrative Medical decision making narrative: Patient is a 75-year-old female presenting to the emergency department for concerns of multiple falls/head injuries over the last week. She is also concerned for 3 weeks of word finding difficulty. Her vital signs are within normal limits. She is afebrile and hemodynamically stable. Other than word finding difficulty, she has a nonfocal neurologic examination. She is oriented x 3 and mentating appropriately. Differential diagnosis includes concussion, intracranial hemorrhage, subdural hematoma, possible prior CVA? though less likely and far outside the window for acute interventions, neurodegenerative diseases, age-related anomia. She has no other symptoms to suggest systemic illness. She overall appears well. CT head w/o contrast was ordered. CT head independently reviewed/interpreted by myself demonstrated no acute intracranial pathology or hemorrhage. I do believe the patient is stable for discharge at this time. Patient's presentation is most likely consistent with closed head injury/concussion. They were instructed to follow up with her PCP and complete her outpatient MRI. Return precautions were given including any new or worsening symptoms. Patient understands and agrees to the plan. FINAL IMPRESSION: #Subacute multiple closed head injuries, possible concussion #Subacute word finding difficulty DISPOSITION: Discharged home CONDITION: Good Medical Records Medical records reviewed: Yes I reviewed the patient's medical records Imaging Data CT scan - head: Radiologist's impression: ITS Impressions Head CT 04/01/25 12:19 IMPRESSION: No acute intracranial pathology. There is age-related cortical atrophy. Impression dictated by: Dontae Blair M.D. 04/01/2025 12:59 PM Dictation Location: [place] [address] Electronically authenticated by: [id number] Y Date: 04/01/2025 12:59 Discharge Plan Discharge Chief Complaint: Fall Clinical Impression: Head injury Qualifiers: Encounter type: initial encounter Qualified Code(s): S09.90XA - Unspecified injury of head, initial encounter Patient Disposition: Home, Self-Care Time of Disposition Decision: 13:08 Condition: Good Mode of Transportation: Private Vehicle Prescriptions / Home Meds: No Action gabapentin 600 mg tablet 600 mg PO DAILY fluoxetine 40 mg capsule 40 mg PO DAILY ferrous sulfate 325 mg (65 mg iron) tablet 325 mg PO DAILY meloxicam 7.5 mg tablet 7.5 mg PO DAILY furosemide 20 mg tablet 40 mg PO DAILY aripiprazole 2 mg tablet 2 mg PO DAILY Print Language: Mongolian Instructions: Head Injury (ED) Referrals: HEMMER,SHERLY M [Primary Care Provider, Family Practice] - 1 week
== END 2025-04-01 13:21 | disposition home or self-care (01) ==
PROVIDERS: Emergency Provider Student in an Organized Health Care Education/Training Program; PCP Physician Assistant
DX: S09.90XA Unspecified injury of head, initial encounter (principal); W01.0XXA Fall on same level from slipping, tripping and stumbling without subsequent striking against object, initial encounter; R47.89 Other speech disturbances; Z91.81 History of falling
CPT/HCPCS: 70450; 99284

== ENCOUNTER 2025-04-10 12:15 | Outpatient (OUT) | payer MEDICARE, SELFPAY ==
--- OUTSIDE RECORDS SUMMARY | 2025-04-10 12:16 | XMS_ITS | Encounter Summary ---
Author Organization [facility] Address [address] [place] [address] Care Team Providers Care Cross Country/Track And Field Coach Name Role Phone Unavailable Primary Care Provider [...]
--- OUTSIDE RECORDS SUMMARY | 2025-04-10 12:16 | XMS_ITS | Clinical Summary ---
Author Organization [facility] [facility] Address [id number] [address] [place] [address] Care Team Providers Care Supervisor Filtration Name Role Phone Nicholas Muñiz MD Primary Care Provider [phone] Allergies No known active allergies Medications sodium,alethaiu m,mag sulfates (SUPREP BOWEL PREP KIT) 17.5-3.13-1.6 [...] Medical Devices Not on file Insurance MEDICARE [id number] PLAN Care Teams Supervisor Filtration Relationship Specialty Start Date End Date Nicholas Muñiz MD [address] [phone] PCP - General Internal Medicine 10/22/18
--- OUTSIDE RECORDS SUMMARY | 2025-04-10 12:16 | XMS_ITS | Encounter Summary ---
Author Organization [facility] Address [address] [place] [address] Care Team Providers Care Shoe Repairman Name Role Phone Unavailable Primary Care Provider [...]
--- OUTSIDE RECORDS SUMMARY | 2025-04-10 12:16 | XMS_ITS | Encounter Summary ---
Author Organization [facility] Address [address] [place] [address] Care Team Providers Care Roustabout Supervisor Name Role Phone Unavailable Primary Care Provider [...]
--- OUTSIDE RECORDS SUMMARY | 2025-04-10 12:16 | XMS_ITS | Clinical Summary ---
Author Organization [facility] Address [address] [place] [address] Care Team Providers Care Bulb Packer Name Role Phone Unavailable Primary Care Provider Unavailabl e Source Comments The following information is NOT included in Care Everywhere downloads:Psychiatric notes, ECG results, Cardiac Rehab notes, Pulmonary Function notes, data from [employer] (includes but not limited toPregnancy data,audiograms, eye exams, pre-surgical evaluation notes, well-child exam data).[facility] Immunizations Immunization Administration Dates Next Due Hep B (adult, 3-dose) or (ad ol 11-15, 2-dose) (CVX=43) 02/07/2002,10/09/2001,09/11/2001 Influenza, injectable, high dose seasonal, trivalent, preservative free (PCI=969) 05/07/2020,09/08/2019,06/14/2018,05/25 Influenza, injectable, high- dose seasonal, quadrivalent, preservative free (ELB=118) 04/05/2020 Influenza, intradermal, triv alent, preservative free (IIV3) (EOL=025) 06/05/2018 Pneumococcal conjugate 13 va lent (PCV13) (CFW=021) 04/05/2018 Pneumococcal polysaccharide 23 Valent (PPSV23) (CVX=33) 08/06/2017,05/25/2016 Tdap (ETF=419) 06/23/2020 Social History Tobacco Use Types Packs/Day [...] Annual Wellness Visit (G0438) 02/03/2022 COVID-19 Vaccine (2024-2 6 season) 2025 10/29/2020, 09/29/2020 Influenza Vaccine (#1) 2025 , 04/05/2020, 09/08/2019, Additional history exists RSV vaccine (adult) (1 - 1-d ose 75+ series) 2026 Tetanus (Td or Tdap) Booster 06/23/2030 06/23/2020 Hepatitis B (HBV) Vaccine Completed 2001, 10/09/2001, 09/11/2001 Pneumococcal Vaccine(s) (50+ yrs) Completed 04/05/2018, 08/06/2017, 05/25/2016 Tdap Booster Completed 06/23/2020 Pap Smear Discontinued Insurance MEDICARE
--- OUTSIDE RECORDS SUMMARY | 2025-04-10 12:16 | XMS_ITS | Clinical Summary ---
Author Organization [facility] Address [address] [place] [address] Care Team Providers Care Application Specialist Name Role Phone Unavailable Primary Care [...]
--- NOTE | 2025-04-10 12:18 | MR_ITS ---
The [address] [address] Patient Name: FOREST SANCHEZ MRN: [id number] date: 1950 Sex: F Assigned Patient Location: MRI Current Patient Location: MRI Accession/Order Number: [id number] Exam Date: 04/10/2025 13:00 Report Date: 04/10/2025 15:50 At the request of: SHERLY LOZANO Procedure: MR head/brain wo con MR head/brain wo con 04/10/2025 1:56 PM SIGN AND SYMPTOMS: ^closed head injury, initial encounter S09.90XA PROTOCOL: Multiplanar multisequence MR images of the brain without IV contrast. COMPARISON: 04/01/2025 FINDINGS: Extra axial spaces: There is age-related cortical atrophy. Hemorrhage: None. Ventricular system: Within normal limits. Basal cisterns: Within normal limits and not effaced. Cerebral parenchyma: T2 and FLAIR hyperintense signal is noted in the periventricular white matter as seen mild chronic microvascular ischemic change. Midline shift: None.. Cerebellum: Within normal limits. Brainstem: Within normal limits. OTHER: Calvarium: Normal marrow signal. Vascular system: Satisfactory flow voids within the anterior and posterior circulation. Visualized Paranasal sinuses: Mucosal thickening is noted in the maxillary sinuses with evidence of previous antrectomy. Visualized Orbits: Within normal limits. Visualized upper cervical spine: Degenerative changes are noted in the cervical spine.. Sella and skull base: Within normal limits. MR/MR head/brain wo con IMPRESSION: No acute intracranial pathology. Chronic age-related neurodegenerative changes are noted as above. Impression dictated by: Dontae Blair M.D. 04/10/2025 3:50 PM Dictation Location: [place] [address] Electronically authenticated by: [id number] Y Date: 04/10/2025 15:50
== END 2025-04-10 12:16 | disposition home or self-care (01) ==
LOC: MRI 12:15
PROVIDERS: PCP Physician Assistant; Visit Provider Physician Assistant
DX: S09.90XA Unspecified injury of head, initial encounter (principal); R47.01 Aphasia; R29.6 Repeated falls; R26.89 Other abnormalities of gait and mobility
CPT/HCPCS: 70551